=== PATIENT | male | born 1950 | race Caucasian/White ===

== ENCOUNTER 2016-11-12 16:14 | Emergency (ER) | payer BC ==
[2016-11-12 17:18] VITALS: BP 145/80
--- NOTE | 2016-11-12 18:17 | UC ---
Back Pain HPI - HPI Summary HPI Summary: SLIPPED AND FELL GETTING OUT OF THE BATH TUB 3 DAYS AGO. FELL FORWARD AND LANDED UPPER BACK AND THEN BACK OF HEAD STRUCK THE VANITY. NO LOC. HAS PAIN MID BACK AND RIGHT SHOULDER. FULL ROM. NO NUMBNESS OR TINGLING. - History of Current Complaint Chief Complaint: UCBackPain Stated Complaint: BACK INJURY Time Seen by Provider: 11/12/16 17:52 Hx Obtained From: Patient Onset/Duration: Sudden Onset, Lasting Days, Still Present Timing: Constant Severity Initially: Moderate Severity Currently: Moderate Pain Intensity: 5 Pain Scale Used: 0-10 Numeric Back Pain: Is Discrete @ - MID BACK Character: Sharp Aggravating: Movement Alleviating: Rest Associated Signs And Symptoms: Positive: Negative - Allergies/Home Medications Allergies/Adverse Reactions: Allergies Allergy/AdvReac Type Severity Reaction Status Date / Time No Known Allergies Allergy Verified 11/12/16 17:19 Home Medications: Home Medications Aspirin Low Dose CHEW TAB* [Aspirin Low Dose TAB*] 81 mg PO DAILY 11/12/16 [ History Confirmed 11/12/16] Ibuprofen TAB* [Advil TAB*] 400 mg PO TID PRN 11/12/16 [History Confirmed ] Simvastatin [Zocor 5 MG-] 5 mg PO DAILY 11/12/16 [History Confirmed 11/12/16] PMH/Surg Hx/FS Hx/Imm Hx Endocrine History Of: Reports: Dyslipidemia Denies: Diabetes, Thyroid Disease Cardiovascular History Of: Denies: Cardiac Disorders, Hypertension, Congestive Heart Failure Respiratory History Of: Denies: COPD, Asthma GI/ History Of: Denies: Renal Disease - Surgical History Surgical History: Yes Surgery Procedure, Year, and Place: tonsillectomy, pre-cancerous moles removed - Family History Known Family History: Positive: Hypertension - Social History Alcohol Use: Daily Substance Use Type: None Smoking Status (MU): Never Smoked Tobacco Review of Systems Constitutional: Negative Skin: Negative Respiratory: Negative Cardiovascular: Negative Gastrointestinal: Negative Musculoskeletal: Arthralgia, Myalgia All Other Systems Reviewed And Are Negative: Yes Physical Exam Triage Information Reviewed: Yes Appearance: Well-Appearing, No Pain Distress, Well-Nourished Vital Signs: Initial Vital Signs Temp 97.9 F 11/12/16 17:14 Pulse 68 11/12/16 17:14 Resp 16 11/12/16 17:14 BP 145/80 11/12/16 17:14 Pulse Ox 99 11/12/16 17:14 Vital Signs Reviewed: Yes Eyes: Positive: Conjunctiva Clear ENT: Positive: Hearing grossly normal Neck: Positive: Supple Respiratory: Positive: No respiratory distress, No accessory muscle use Cardiovascular: Positive: Pulses Normal Abdomen Description: Positive: Soft Musculoskeletal: Positive: ROM Intact, No Edema, Other: - TTP OVER MID THORACIC SPINE. Neurological: Positive: Alert Psychological: Positive: Age Appropriate Behavior Skin: Positive: Other - 1.5CM SUPERFICILA ABRASION POSTERIOR SCALP. NO ERYTHEMA OR DRAINAGE. Negative: rashes Diagnostics - Radiology THORACIC SPINE CT W/O CONTRAST Xray Interpretation: Positive (See Comments) - Mild compression of the superior endplate of T1 age of which is undetermined but there is no evidence of abnormal soft tissue present. The remainder of the thoracic vertebra are otherwise unremarkable. Radiology Interpretation Completed By: Radiologist Back Pain Course/Dx - Course Course Of Treatment: COMPRESSION OF T1 ON CT. NOT IN AREA OF PT TENDERNESS. OTS MEDS. STRETCH. F/U PCP OR SPINE CLINIC IF NOT IMPROVING. - Differential Dx/Diagnosis Provider Diagnoses: 1. THORACIC BACK STRAIN. 2. ABRASION POSTERIOR SCALP Discharge - Discharge Plan Condition: Stable Disposition: HOME Patient Education Materials: Abrasion (ED), Thoracic Back Strain (ED) Referrals: Lobo Weiner MD [Primary Care Provider] - 5 Days Additional Instructions: XRAY SHOWS: Mild compression of the superior endplate of T1 age of which is undetermined but there is no evidence of abnormal soft tissue present. The remainder of the thoracic vertebra are otherwise unremarkable. OTC IBUPROFEN NEEDED FOR DISCOMFORT. BE SURE TO GO THROUGH SLOW RANGE OF MOTION AND STRETCHING EXERCISES DAILY YOU ARE ABLE TO PREVENT STIFFENING UP AND MAKING THE DISCOMFORT WORSE. FOLLOW-UP WITH YOUR PCP IF YOU ARE NOT IMPROVING EXPECTED. [facility] [address] [place], [place] [id number]
--- NOTE | 2016-11-12 18:47 | RAD ---
Indication: Fall, back pain. CT of the thoracic spine is obtained in the axial plane. Sagittal and coronal reconstructed images were obtained. There is mild compression of the superior endplate of T1. Age of this is undetermined as there is no evidence of adjacent soft tissue edema noted. Clinical correlation is suggested. The remainder of the vertebral bodies appear normal in height and alignment. No focal protrusion is identified. No evidence of spinal canal compromise is noted. The spinous processes are unremarkable. The visualized aorta is unremarkable. The lung crespo are grossly unremarkable. IMPRESSION: Mild compression of the superior endplate of T1 age of which is undetermined but there is no evidence of abnormal soft tissue present. Clinical correlation is suggested. The remainder of the thoracic vertebra are otherwise unremarkable.
== END 2016-11-12 19:19 | disposition home or self-care (01) ==
LOC: UCEAST 16:14
DX: J02.0 Streptococcal pharyngitis (principal)
CPT/HCPCS: 72128; 99211; G0463

== ENCOUNTER 2017-03-22 09:03 | Emergency (ER) | payer BC ==
[2017-03-22 09:15] VITALS: BP 134/68
--- NOTE | 2017-03-22 09:33 | UC ---
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 NO ITCHING OR PAIN NO RAINES OR MYALGIA - History of Current Complaint Chief Complaint: UCRash Time Seen by Provider: 03/22/17 09:21 Stated Complaint: RASH Onset/Duration: Sudden Onset, Gradual Onset, Lasting Minutes Onset Severity: Mild Current Severity: Mild Pain Intensity: 0 Pain Scale Used: 0-10 Numeric Character: Redness Aggravating Factor(s): Nothing Alleviating Factor(s): Nothing Associated Signs & Symptoms: Positive: Rash - Allergy/Home Medications Allergies/Adverse Reactions: Allergies Allergy/AdvReac Type Severity Reaction Status Date / Time No Known Allergies Allergy Verified 03/22/17 09:10 Home Medications: Home Medications Talc [Zeasorb] 03/22/17 [History] Review of Systems Constitutional: Negative Skin: Rash Eyes: Negative ENT: Negative Respiratory: Negative Cardiovascular: Negative Gastrointestinal: Negative Genitourinary: Negative Motor: Negative Neurovascular: Negative Musculoskeletal: Negative Neurological: Negative Psychological: Negative Is Patient Immunocompromised?: No All Other Systems Reviewed And Are Negative: Yes PMH/Surg Hx/FS Hx/Imm Hx Previously Healthy: Yes Endocrine History: Dyslipidemia - Surgical History Surgical History: Yes Surgery Procedure, Year, and Place: tonsillectomy, pre-cancerous moles removed - Family History Known Family History: Positive: Hypertension - Social History Alcohol Use: Daily Substance Use Type: None Smoking Status (MU): Never Smoked Tobacco Physical Exam Triage Information Reviewed: Yes Appearance: Well-Appearing, No Pain Distress, Well-Nourished Vital Signs: Initial Vital Signs Temp 98.7 F 03/22/17 09:11 Pulse 94 03/22/17 09:11 Resp 14 03/22/17 09:11 BP 134/68 03/22/17 09:11 Pulse Ox 98 03/22/17 09:11 Vital Signs Reviewed: Yes Eyes: Positive: Conjunctiva Clear ENT: Negative: Hearing grossly normal, Nasal congestion, Nasal drainage, Trismus , Muffled/hoarse voice Neck: Positive: Supple, Nontender Respiratory: Positive: Lungs clear, Normal breath sounds, No respiratory distress, No accessory muscle use Cardiovascular: Positive: RRR, No Murmur. Negative: Tachycardia, Bradycardia Musculoskeletal: Positive: ROM Intact, No Edema Neurological: Positive: Alert Psychological Exam: Normal Skin Exam: Other - 10 X 14 CM ANULAR RED RASH ON RIGHT LOWER LEG/NO FLUTUANCE OR INDURATION/SKIN INTEGRITY INTACT/HIT OF A BULL'S EYE LESION Course/Dx - Diagnoses Provider Diagnoses: ACUTE RASH. ?CELLULITIS VS LYME DISEASE VS OTHER Discharge - Discharge Plan Condition: Stable Disposition: HOME Prescriptions: DOXYcycline CAP(*) [DOXYcycline 100MG CAP(*)] 100 mg PO BID #28 cap Patient Education Materials: Lyme Disease (ED), Cellulitis (ED) Referrals: Lobo Weiner MD [Primary Care Provider] - 6 Days Additional Instructions: I AM NOT SURE IF THIS IS RELATED TO A SKIN INFECTION (CELLULITIS) OR A MANIFESTATION OF LYME DISEASE
== END 2017-03-22 09:45 | disposition home or self-care (01) ==
LOC: UCEAST 09:03
DX: R21 Rash and other nonspecific skin eruption (principal)
CPT/HCPCS: 99212; G0463